=== PATIENT | male | born 1950 | race Caucasian/White ===

== ENCOUNTER 2018-02-09 01:29 | Inpatient (IN) | payer OTHER ==
[~2018-02-09] VITALS: Ht 177.8 cm; Wt 84.6 kg
--- NOTE | ~2018-02-09 | EKG ---
[address] [address] ELECTROCARDIOGRAM REPORT Name: FRANCISCA RAMIREZ Room #: 421-P ADM IN M.R.#: [id number] Admission: 02/09/18 Attend Phys: Nicolas Kapadia MD Discharge: Date of : 50 Report #: [id number] THIS REPORT FOR: //name// [facility] ED Test Date: 2018-02-09 Test Time: 02:51:14 Pat Name: FRANCISCA RAMIREZ Department: Room: 421 Gender: M Decontamination Worker: ABIDA : 1950 Requested By: Frederick Storm Order Number: [id number] MD: Bruce Foreman Measurements Intervals [place] Rate: 117 P: 71 NE: 150 QRS: 62 QRSD: 86 T: 60 QT: 332 QTc: 464 Interpretive Statements Sinus tachycardia Left atrial enlargement Compared to ECG 06/14/2010 21:13:58 Atrial abnormality now present Sinus rhythm no longer present Electronically Signed On 02-10-2018 17:38:09 CDT by Bruce Foreman [email or web address] <ELECTRONICALLY SIGNED> By: Bruce Foreman MD 02/10/18 [id number] Bruce Foreman MD /EPI
[~2018-02-09 01:29] MED LIST: ALBUTEROL2.5 MG/31 IH; ATIVAN1 MG PO; CALCIUM; KLOR-CON; NOHOMEMEDICATIONS; NORCO 7.5-3251 EACH PO; PROAIR HFA8.5 GM IH; ZPAK PO
[2018-02-09 01:31] VITALS: BP 141/78
[2018-02-09 01:42] LABS: ABSOLUTE NEUTROPHILS 7.4 thou/uL (1.4-8.2); BASOPHILS 0.5 % (0.0-2.0); EOSINOPHILS 3.2 % (0.0-3.0); HEMATOCRIT 44.3 % (42.0-52.0); HEMOGLOBIN 15.2 gm/dL (14.0-18.0); LYMPHOCYTES 11.6 % (24.0-44.0); MCH 32.6 pg (26.0-34.0); MCHC 34.4 g/dL (28.0-37.0); MCV 94.9 fL (80.0-100.0); MONOCYTES 3.8 % (1.0-8.0); PLATELET COUNT 341 thou/uL (150-400); POLYS 80.9 % (36.0-66.0); RBC 4.67 mil/uL (4.50-6.00); RDW 13.8 % (10.5-14.5); WBC 9.2 thou/uL (4.0-11.0)
[2018-02-09 01:50] LABS: CALCIUM 7.8 mg/dL (8.5-10.1); POTASSIUM 3.7 mmol/L (3.5-5.1)
[2018-02-09 01:56] LABS: ALBUMIN 3.9 g/dL (3.4-5.0); TOTAL BILIRUBIN 0.3 mg/dL (<0.1-1.0); TOTAL PROTEIN 8.2 g/dL (6.4-8.2)
[2018-02-09 03:07] VITALS: BP 141/78
[2018-02-09 03:30] VITALS: BP 113/66
[2018-02-09 04:00] VITALS: BP 122/69
[2018-02-09 10:51] LABS: TOTAL PROTEIN 8.2 g/dL (6.4-8.2)
[2018-02-09 11:17] LABS: TSH 1.969 uIU/mL (0.358-3.740)
[2018-02-09 16:20] VITALS: BP 111/51
[2018-02-09 19:40] VITALS: BP 115/48
[2018-02-10 05:17] VITALS: BP 116/72
[2018-02-10 06:17] LABS: HEMATOCRIT 44.3 % (42.0-52.0); HEMOGLOBIN 14.8 gm/dL (14.0-18.0); MCH 32.6 pg (26.0-34.0); MCHC 33.4 g/dL (28.0-37.0); MCV 97.4 fL (80.0-100.0); RBC 4.54 mil/uL (4.50-6.00); WBC 9.7 thou/uL (4.0-11.0)
[2018-02-10 07:54] LABS: CALCIUM 7.5 mg/dL (8.5-10.1); CREATININE 1.1 mg/dL (0.7-1.3); POTASSIUM 3.9 mmol/L (3.5-5.1)
[2018-02-10 16:15] VITALS: BP 124/70
[2018-02-10 20:01] VITALS: BP 125/58
[2018-02-11 03:21] VITALS: BP 147/75
[2018-02-11 06:12] LABS: HEMATOCRIT 42.9 % (42.0-52.0); HEMOGLOBIN 14.5 gm/dL (14.0-18.0); MCH 32.4 pg (26.0-34.0); MCHC 33.9 g/dL (28.0-37.0); MCV 95.6 fL (80.0-100.0); RBC 4.49 mil/uL (4.50-6.00); RDW 14.2 % (10.5-14.5); WBC 12.9 thou/uL (4.0-11.0)
[2018-02-11 06:26] LABS: CALCIUM 7.4 mg/dL (8.5-10.1); CREATININE 1.1 mg/dL (0.7-1.3); MAGNESIUM 2.2 mg/dL (1.8-2.4); POTASSIUM 3.9 mmol/L (3.5-5.1)
[2018-02-11 07:48] VITALS: BP 131/68
[2018-02-11 10:18] VITALS: BP 131/68
[2018-02-11] MEDS ORDERED: MIRALAX17 GM PO (12:39)
[2018-02-11] MEDS ORDERED: MUCINEX600 MG PO (12:39)
[2018-02-11] MEDS ORDERED: ANORO ELLIPTA1 EACH INH (12:39)
[2018-02-11] MEDS ORDERED: PREDNISONE 20 M20 MG PO (12:39)
[2018-02-11] MEDS ORDERED: IPRAT-ALBUT 0.5-3 ML INH (12:39)
[2018-02-11 12:57] VITALS: BP 131/68
[2018-02-11] MEDS ORDERED: WORK RELEASE (13:04)
== END 2018-02-11 13:25 | disposition home or self-care (01) | DRG 872 ==
LOC: ER 01:29 → 4E 01:57 → EROBS 01:57 → 4E 03:45
PROVIDERS: Emergency Medicine; Internal Medicine
DX: A41.9 Sepsis, unspecified organism (principal); J44.1 Chronic obstructive pulmonary disease with (acute) exacerbation; F17.210 Nicotine dependence, cigarettes, uncomplicated; Z90.49 Acquired absence of other specified parts of digestive tract; Z79.899 Other long term (current) drug therapy; Z71.6 Tobacco abuse counseling
CPT/HCPCS: 10183